=== PATIENT | male | born 1995 | race Caucasian/White ===

== ENCOUNTER 2021-07-24 09:14 | Emergency (ER) | payer BC, SELFPAY ==
[2021-07-24 09:26] VITALS: BP 139/59; PULSE 80; RESP 16; TEMP 37.2; O2SAT 98
--- NOTE | 2021-07-24 10:11 | ED.URI ---
HPI - URI/Sore Throat General Chief Complaint: Upper Respiratory Infection Stated Complaint: sore throat/cough Time Seen by Provider: 07/24/21 10:11 Source: patient Mode of arrival: ambulatory Limitations: no limitations History of Present Illness HPI Narrative: Leonardo Dow is a 26 yo male with no PMH comes to the [facility] with sore throat. He has had 2 - Covid test because he is got back from [place] but his tested positive for mono yesterday negative for strep. Patient did not want to be tested for strep but here be tested for mono Related Data Home Medications Medication Instructions Recorded Confirmed sildenafil 100 mg PO PRN PRN 09/05/19 07/24/21 testosterone cypionate 120 mg IM WEEKLY 09/05/19 07/24/21 Allergies Allergy/AdvReac Type Severity Reaction Status Date / Time No Known Allergies Allergy Verified 07/24/21 09:25 Review of Systems Review of Systems: CONSTITUTIONAL: Denies fever, chills, sweats. EYES: Denies visual changes, redness, discharge. ENT: Denies rhinorrhea, congestion, has sore throat, otalgia. CARDIOVASCULAR: Denies chest pain, palpitations, edema. RESPIRATORY: Denies dyspnea, wheezing, cough GASTROINTESTINAL: Denies abdominal pain, nausea, vomiting, diarrhea. GENITOURINARY: Denies dysuria, hematuria, abnormal discharge SKIN: Denies rash or itching. NEUROLOGIC: Denies numbness, or focal weakness. PSYCHIATRIC: Denies anxiety or depression. PMFSH Past Medical History Medical History No acute medical problems Social History Social History (Updated 07/24/21 @ 10:20 by Tia Peralta CNP) Smoking status: Never smoker Alcohol intake: current Gender identity (if verbalized by the patient): Male Comments At time of signature, I agree with nursing past medical, surgical, social and family history. There is no relevant family history pertinent to the presenting complaint. Exam Narrative: GENERAL: This is a well-nourished, well-developed patient, in mild distress. HEAD: normocephalic, atraumatic. EYES: Sclera clear/white. Vision is grossly intact. EARS: External ears normal, auditory canals clear and without drainage, TMs normal without perforation. Hearing grossly intact. NOSE: External nose normal without nasal discharge, nares without redness, has rhinorrhea. THROAT: Mucous membranes moist, posterior pharynx erythema with enlarged tonsils but he states tonsils are always large NECK: Neck supple, non-tender CARDIOVASCULAR: Regular rate and rhythm without murmurs, gallops, or rubs. RESPIRATORY: Clear to auscultation. Breath sounds equal bilaterally. No wheezes, rales, or rhonchi. GASTROINTESTINAL: Abdomen soft, SKIN: warm, intact with no suspicious lesions or rash, good texture and turgor. NEURO: awake, alert, and oriented to person, place and time. There were no obvious focal neurologic abnormalities. Steady gait EXTREMITIES: Normal range of motion. BACK: Nontender without deformity Course Course Emergency Course: Patient comes with congestion and sore throat for a week and feels fatigued his girlfriend tested positive for mono yesterday [place] test negative Discussed management of symptoms with Zyrtec Mucinex and [id number] Delsym Vital Signs Vital signs: Vital Signs Temperature 99.0 F 07/24/21 09:26 Pulse Rate 80 07/24/21 09:26 Respiratory Rate 16 07/24/21 09:26 Blood Pressure 139/59 L 07/24/21 09:26 Pulse Oximetry 98 07/24/21 09:26 Temperature 99.0 F 07/24/21 09:26 Pulse Rate 80 07/24/21 09:26 Respiratory Rate 16 07/24/21 09:26 Blood Pressure 139/59 L 07/24/21 09:26 Pulse Oximetry 98 07/24/21 09:26 MDM - URI/Sore Throat Differential Diagnosis Differential diagnosis: Likely upper respiratory infection, sinusitis, viral infection, bronchitis, pharyngitis and other Lab Data Labs: [place] Screen Negative
== END 2021-07-24 10:25 | disposition home or self-care (01) ==
PROVIDERS: Emergency Provider Nurse Practitioner
DX: J06.9 Acute upper respiratory infection, unspecified (principal)
CPT/HCPCS: 36416; 86308; 99213; G0463